=== PATIENT | male | born 1940 | race Caucasian/White ===

== ENCOUNTER → 2016-10-20 | Outpatient (CLI) | payer OTHER ==
[~2016-10-20] MED LIST: ALFU1TAB2 PO; AMLO5TAB2 PO; ASPI-232 PO; ATOR-26 PO; DUTA0.5C PO; ESCI1TAB9 PO; FLUT0.15 NAE; MELA1CAP9 PO; MULT-506 PO; POLYSOL4 OP
[2016-10-20 12:44] LABS: BASO % 0.2 %; BASO ABS # 0.01 K/uL (0-0.2); COMPLETE YES; EOS % 3.2 %; HEMATOCRIT 37.2 % (42-52); IG% 0.2 %; LYMPH % 23.9 %; LYMPH ABS # 1.35 K/uL (1.2-3.4); MEAN CELL VOLUME 96.1 fL (80-100); MEAN CORPUSCULAR HEMOGLOBIN 32.8 pg (25-34); MEAN CORPUSCULAR HGB CONC 34.1 g/dl (32-36); MEAN PLATELET VOLUME 11.7 fL (7.4-10.4); MONO % 11.2 %; NEUT % 61.3 %; PLATELET COUNT 127 K/uL (130-400); RED BLOOD COUNT 3.87 M/uL (4.7-6.1); WHITE BLOOD COUNT 5.64 K/uL (4.8-10.8)
[2016-10-20 13:55] LABS: ALT/SGPT 26 U/L (12-78); BLOOD UREA NITROGEN 21 mg/dl (7-18); BUN/CREATININE RATIO 24.9 (10-20); CALCIUM 8.1 mg/dl (8.5-10.1); CARBON DIOXIDE 25 mmol/L (21-32); CHLORIDE 110 mmol/L (98-107); CHOLESTEROL 98 mg/dl (0-200); CREATININE 0.83 mg/dl (0.60-1.40); GLUCOSE 94 mg/dl (70-99); POTASSIUM 3.9 mmol/L (3.5-5.1); SODIUM 143 mmol/L (136-145); TRIGLYCERIDES 83 mg/dl (0-150); VERY LOW DENSITY LIPOPROT CALC 17 mg/dl
[2016-10-20 14:02] LABS: ALB/GLOB RATIO 1.6 (0.9-2); ALKALINE PHOSPHATASE 86 U/L (45-117); AST/SGOT 18 U/L (15-37); CHOLESTEROL/HDL RATIO 2.4; HDL CHOLESTEROL 41 mg/dl; LDL CHOLESTEROL CALCULATED 40 mg/dl
== END | disposition home or self-care (01) ==
LOC: C.LAB1850 09:49
PROVIDERS: ATTEND Physician Assistant
DX: Z00.00 Encounter for general adult medical examination without abnormal findings (principal); I10 Essential (primary) hypertension; E78.5 Hyperlipidemia, unspecified; N40.1 Benign prostatic hyperplasia with lower urinary tract symptoms

== ENCOUNTER → 2016-11-07 | Outpatient (CLI) | payer OTHER ==
--- NOTE | 2016-11-07 12:22 | DIAGNOSTIC IMAGING REPORT ---
RIGHT KNEE 1 OR 2 VIEWS ROUTINE CLINICAL HISTORY: M25.569 Knee [id number] Right COMPARISON STUDY: None. FINDINGS: Moderate cartilage space narrowing within the medial compartment of the right knee and mild cartilage space narrowing seen within the lateral compartment. No fracture or dislocation. A 2.2 cm calcification medial to the medial femoral condyle. This is consistent with an old healed injury. Small knee effusion. Small marginal osteophytes. 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 No acute fracture or dislocation. Old MCL injury. Electronically signed by: Ghassan Xavier M.D. 11/07/2016 12:21 PM Dictated Date/Time: 11/07/2016 12:16 PM
== END ==
LOC: C.RAD1850 12:04
PROVIDERS: ATTEND Internal Medicine
DX: M25.561 Pain in right knee (principal)

== ENCOUNTER → 2016-12-12 | Outpatient (CLI) | payer OTHER ==
--- NOTE | 2016-12-12 14:25 | MAMMOGRAPHY REPORT ---
MALE BILATERAL DIGITAL DIAGNOSTIC MAMMOGRAM WITH CAD AND TARGETED BILATERAL ULTRASOUND: 12/12/2016 CLINICAL HISTORY: The patient reports he hit his left breast against the corner of a shelf approximat mahogany one month ago and had significant pain at that time. He still reports continued pain in the left breast. He denies any right breast pain or palpable lumps. TECHNIQUE: Current study was also evaluated with a Computer Aided Detection (CAD) system. Bilateral CC and MLO views were obtained. COMPARISON: No prior exams were available for comparison. BREAST COMPOSITION: The tissue of both breasts is prominently fatty. FINDINGS: Two square markers jerson the sites of pain in the left 12:00 and upper outer quadrant. The re is fibro-glandular tissue seen within bilateral breasts centered around the subareolar region, lef t breast greater than right consistent with moderate gynecomastia. No suspicious masses, calcificati ons, or areas of architectural distortion are noted within either breast. Targeted ultrasound was performed of the areas of pain pointed out by the patient, in the left subare olar breast, left 12:00 periareolar breast, and left 3:00 periareolar breast. Fibroglandular tissue is seen in these regions, consistent with gynecomastia. No suspicious mass or other suspicious sonog raphic abnormality is evident. No fluid collection is seen. Targeted ultrasound was performed of th e right subareolar breast for comparison purposes, which also shows fibroglandular tissue consistent with gynecomastia. IMPRESSION: ACR BI-RADS CATEGORY 2: BENIGN, TARGETED ULTRASOUND ACR BI-RADS CATEGORY 2: BENIGN Bilateral benign gynecomastia, left greater than right, which corresponds with the areas of pain poin elio out by the patient. There is no mammographic or targeted sonographic evidence of malignancy. Re commend clinical follow-up as to a possible underlying cause. The patient has been verbally notified of the results. Approximately 10% of breast cancers are not detected with mammography. A negative mammographic report should not delay biopsy if a clinically suggestive mass is present. Emelia Jones M.D. ah/:12/12/2016 11:11:24 Tool Shaper Set Up Operator: Florecita COTA)(M), [facility] letter sent: Normal /2 BI-RADS Code: ACR BI-RADS Category 2: Benign Ultrasound BI-RADS: ACR BI-RADS Category 2: Benign
== END | disposition home or self-care (01) ==
LOC: C.MAMM 10:21
PROVIDERS: ATTEND Physician Assistant
DX: N64.4 Mastodynia (principal); N62 Hypertrophy of breast

== ENCOUNTER → 2017-03-03 | Outpatient (CLI) | payer OTHER ==
[2017-03-03 14:40] LABS: LYME DISEASE AB IGG NEG (NEG); LYME DISEASE AB IGM NEG (NEG)
--- NOTE | 2017-03-09 12:09 | CODING QUERY MEDICAL NECESSITY ---
CQSUPPORTING DIAGNOSIS NEEDED A supporting diagnosis is required for the test/procedure performed on this patient in order for us to be reimbursed by the patient's insurance. Please provide a supporting diagnosis for the following test/procedure listed below next to the test name along with your signature. *If there is no additional diagnosis for this patient that would support the following test/procedure please document that below next to the test/procedure. Test(s)/Procedure(s) that require a supporting diagnosis: DOS 03/03/17 VITAMIN B12 TEST Provider Signature: Date: Thank you Manjula Morrison Health Information Management Once completed, please kindly fax back to [phone] For questions please call [phone]
== END | disposition home or self-care (01) ==
LOC: C.LAB1850 12:13
PROVIDERS: ATTEND Physician Assistant
DX: R53.81 Other malaise (principal); R53.83 Other fatigue

== ENCOUNTER → 2017-03-06 | Outpatient (CLI) | payer OTHER ==
--- NOTE | 2017-03-06 09:47 | DIAGNOSTIC IMAGING REPORT ---
ABDOMINAL ULTRASOUND TO ASSESS FOR HERNIA HISTORY: Abdominal pain. Evaluate for hernia. COMPARISON: None. FINDINGS: Note is made of a defect within the midline of the upper anterior abdominal wall. The defect measures 6 mm in transverse dimension. There is an associated nonreducible fat-containing hernia. IMPRESSION: Nonreducible fat-containing midline upper abdominal hernia. Electronically signed by: Eduard Butt M.D. 03/06/2017 9:46 AM Dictated Date/Time: 03/06/2017 9:44 AM
== END | disposition home or self-care (01) ==
LOC: C.ULTR 08:52
PROVIDERS: ATTEND Physician Assistant
DX: R10.13 Epigastric pain (principal); K46.9 Unspecified abdominal hernia without obstruction or gangrene

== ENCOUNTER 2017-09-07 19:38 | Emergency (ER) | payer OTHER ==
[~2017-09-07] VITALS: Ht 182.9 cm; Wt 84.3 kg
[2017-09-07 20:19] VITALS: BP 101/66; PULSE 61; TEMP 36.3; O2SAT 94; Ht 182.9 cm; Wt 84.3 kg
[2017-09-07] MEDS ORDERED: PROPARACAINE HCL 0.5% OP SOLN 15 ML BTL ONE (20:30)
--- NOTE | 2017-09-07 21:14 | EMERGENCY ROOM VISIT NOTE ---
History First contact with patient: 20:23 Chief Complaint: EYE ASSESSMENT Stated Complaint: EYE PAIN History of Present Illness The patient is a 77 year old male who presents to the Emergency Room with complaints of pain in his right eye. The patient states that he was burning trash this evening and felt that something flew into his right eye. He complains of a painful, scratching feeling in the eye, worse when he blinks. He rates the discomfort a 2/10. He states that he tried to have his flipped over his eyelid but she was unable. His tetanus is up-to-date. He denies any vision changes. Review of Systems A complete 10 point review of systems was reviewed with the patient with pertinent positives and negatives as per history of present illness. All else were negative. Past Medical/Surgical History Medical Problems: (1) Anxiety State Nos (2) Diverticulosis Colon (W/O Ment Of Hemorrhage) (3) Hyperlipidemia Nec/Nos (4) Hypertension Nos Family History Diabetes mellitus Heart disease Hypertension Social History Smoking Status: Former Smoker Alcohol Use: occasionally Marital Status: Occupation Status: retired Current/Historical Medications Scheduled Alfuzosin Hcl (Alfuzosin Hcl Er), 10 MG PO QPM Amlodipine Besylate (Norvasc), 1 TAB PO DAILY Aspirin (Aspir-81), 1 TAB PO DAILY Atorvastatin (Lipitor), 80 MG PO QPM Dutasteride (Avodart), 0.5 MG PO QPM Escitalopram Oxalate (Lexapro), 1 TAB PO DAILY Multivitamin (Multivitamin), 1 TAB PO DAILY Polyethylene Glycol-Propylene (Systane), 1-2 DROPS OP UD Scheduled PRN Fluticasone Propionate (Nasal) (Flonase Allergy Relief), 1 SPRAY JOSE RAUL BID PRN for ALLERGIC REACTION Melatonin (Melatonin), 10 MG PO UD PRN for Sleep Physical Exam Vital Signs Date Time Temp Pulse Resp B/P (MAP) Pulse Ox O2 Delivery O2 Flow Rate FiO2 18 20:19 36.3 61 19 101/66 94 Room Air Right Eye Acuity: 20/25 Left Eye Acuity: 20/20 Physical Exam VITALS: Vitals are noted on the nurse's note and reviewed by myself. Vital signs stable. GENERAL: This is a 77-year-old male, in no acute distress, nondiaphoretic, well- developed well-nourished. SKIN: The skin was without rashes. EYES: Visual acuity as per nursing notes. Pupils equal round and reactive to light and accommodation. Slit lamp examination reveals a small black foreign body at approximately 3:00 over the iris right. Examination with UV light after foreign body removal shows a small corneal abrasion in that area. No foreign body seen under the surface of the eyelid when flipped. NEURO: Patient was alert and oriented to person place and time. Medical Decision & Procedures Medications Administered Medications (Trade) Dose Ordered Sig/Halie Route Start Time Stop Time Status Last Admin Dose Admin Proparacaine HCl (Alcaine 0.5% Oph Soln) 225 drops STK-MED ONCE .ROUTE 09/07/17 20:30 09/07/17 20:31 DC 09/07/17 20:30 225 DROPS Ciprofloxacin HCl (Ciprofloxacin 0.3% Op Soln) 2 drops Q4H ONCE OP 09/07/17 21:15 09/07/17 21:16 DC 09/07/17 21:18 2 DROPS Medical Decision Differential diagnosis includes corneal foreign body, corneal abrasion, corneal laceration, among others. The patient was evaluated as above. Exam under slit lamp after treatment with proparacaine reveals a small corneal foreign body. This was easily removed with a wet cotton tipped applicator. Reexamination showed a small corneal abrasion. Patient will be placed on Ciloxan drops and was instructed to follow- up with his primary care provider/spray machine tender for recheck. He verbalized understanding of my assessment and treatment plan and was discharged home in good condition. The patient was independently evaluated by Dr. Walls, ED attending physician, who agreed with my assessment and treatment plan. Medication Reconcilliation Current Medication List: was personally reviewed by me Blood Pressure Screening Patient's blood pressure: Normal blood pressure Impression Primary Impression: Corneal foreign body Departure Information Dispostion Home / Self-Care Condition GOOD Referrals Pro,Marc Shin M.D. (PCP) Patient Instructions My [facility] Additional Instructions You have been treated in the Emergency Department today for your Corneal Abrasion. There was a small foreign body removed from the surface of URI. There is a small scratch on the eye where the foreign body was removed. You have been prescribed Ciloxan eye drops. This is an antibiotic which will help to prevent an infection from developing in your affected eye. You should use 2 drops in the affected eye every 2 hours while awake for the first 2 days, then every 4 hours for the remaining 5 days. This is a total of a 7-day course for these antibiotic eye drops. For pain control, you can use the following [id number] medicines (if >12 yo): - Regular strength (325mg/tab) Tylenol (acetaminophen) 2 tabs every 4-6 hours as needed. Do not exceed 12 tablets in a 24 hour period. Avoid taking more than 4 grams (4000 mg) of Tylenol per day. This includes any other sources of acetaminophen you may take on a regular basis. - Regular strength (200 mg/tab) Advil (ibuprofen) 1-2 tabs every 4-6 hours as needed. Do not exceed a dose of 3200 mg per day. You should relax in a quiet, dark place for the rest of the day. You should wear sunglasses while outside for the next few days until your eyes are not as sensitive to the light. You should schedule a follow-up appointment in 2-3 days with your Primary Care Provider or established Eye Doctor ([facility]) for further evaluation and treatment of your Corneal Abrasion. Return to the Emergency Department if your current symptoms worsen despite treatment course outlined above, or if you develop any of the following symptoms : intractable pain, visual disturbances, loss of vision, increased redness, swelling, drainage, or if you develop a fever. Problem Qualifiers Primary Impression: Corneal foreign body Encounter type: initial encounter Laterality: right Qualified Codes: T15.01XA - Foreign body in cornea, right eye, initial encounter
[2017-09-07] MEDS ORDERED: CIPROFLOXACIN HCL 0.3% OP SOLN 2.5 ML BTL OP ONE (21:15)
== END 2017-09-07 21:22 | disposition home or self-care (01) ==
LOC: C.EDB 19:40 → C.EDD 21:22
DX: T15.01XA Foreign body in cornea, right eye, initial encounter (principal); X58.XXXA Exposure to other specified factors, initial encounter; F41.9 Anxiety disorder, unspecified; E78.5 Hyperlipidemia, unspecified; I10 Essential (primary) hypertension; K57.30 Diverticulosis of large intestine without perforation or abscess without bleeding; Z79.82 Long term (current) use of aspirin; Z87.891 Personal history of nicotine dependence; Z83.3 Family history of diabetes mellitus; Z82.49 Family history of ischemic heart disease and other diseases of the circulatory system

== ENCOUNTER → 2017-10-29 | Outpatient (CLI) | payer OTHER ==
[2017-10-29 09:35] LABS: BASO % 0.2 %; BASO ABS # 0.01 K/uL (0-0.2); EOS % 4.6 %; EOS ABS # 0.27 K/uL (0-0.5); HEMATOCRIT 36.5 % (42-52); HEMOGLOBIN 12.8 g/dL (14.0-18.0); IG# 0.04 K/uL (0.00-0.02); LYMPH % 34.2 %; LYMPH ABS # 2.01 K/uL (1.2-3.4); MEAN CELL VOLUME 96.6 fL (80-100); MEAN CORPUSCULAR HEMOGLOBIN 33.9 pg (25-34); MEAN CORPUSCULAR HGB CONC 35.1 g/dl (32-36); MEAN PLATELET VOLUME 11.2 fL (7.4-10.4); MONO % 8.9 %; MONO ABS # 0.52 K/uL (0.11-0.59); NEUT % 51.4 %; NEUT ABS # 3.02 K/uL (1.4-6.5); PLATELET COUNT 171 K/uL (130-400); RED CELL DISTRIBUTION WIDTH CV 12.5 % (11.5-14.5); RED CELL DISTRIBUTION WIDTH SD 44.1 fL (36.4-46.3); WHITE BLOOD COUNT 5.87 K/uL (4.8-10.8)
[2017-10-29 10:10] LABS: ALBUMIN 3.5 gm/dl (3.4-5.0); ALT/SGPT 28 U/L (12-78); AST/SGOT 20 U/L (15-37); BLOOD UREA NITROGEN 18 mg/dl (7-18); CALCIUM 8.4 mg/dl (8.5-10.1); CARBON DIOXIDE 27 mmol/L (21-32); CHOLESTEROL 76 mg/dl (0-200); CREATININE 1.02 mg/dl (0.60-1.40); GLUCOSE 86 mg/dl (70-99); POTASSIUM 3.9 mmol/L (3.5-5.1); SODIUM 141 mmol/L (136-145)
[2017-10-29 10:13] LABS: ALKALINE PHOSPHATASE 88 U/L (45-117); LDL CHOLESTEROL CALCULATED 30 mg/dl; TOTAL PROTEIN 6.2 gm/dl (6.4-8.2)
== END | disposition home or self-care (01) ==
LOC: C.LAB1850 08:29
PROVIDERS: ATTEND Physician Assistant
DX: I10 Essential (primary) hypertension (principal); E78.5 Hyperlipidemia, unspecified

== ENCOUNTER → 2017-11-04 | Outpatient (CLI) | payer OTHER ==
--- NOTE | 2017-11-04 13:56 | DIAGNOSTIC IMAGING REPORT ---
CHEST 2 VIEWS ROUTINE CLINICAL HISTORY: COUGH dyspnea COMPARISON STUDY: 06/18/2016 FINDINGS: Mild stable cardia megaly. Prior median sternotomy. Lungs are clear. Several small calcified granulomas. Diaphragms are smooth. IMPRESSION: No acute process. The above report was generated using voice recognition software. It may contain grammatical, syntax or spelling errors. Electronically signed by: Ziyad Camejo M.D. 11/04/2017 1:55 PM Dictated Date/Time: 11/04/2017 1:54 PM
== END | disposition home or self-care (01) ==
LOC: C.RAD1850 13:43
PROVIDERS: ATTEND Internal Medicine
DX: R05 Cough (principal); R06.00 Dyspnea, unspecified

== ENCOUNTER 2025-04-21 18:40 | Observation (INO) ==
--- NOTE | 2025-04-21 18:58 | Emergency Department Note ---
Impression & Plan TIA (transient ischemic attack), Chronic anemia ED Provider Note NAME: MAGDI DUVALL AGE: 85 SEX: M : 1940 ARRIVES VIA: Ambulance INFORMANT: Patient, EMS, family ED PROVIDER(S): Darvin Soliz DO CHIEF COMPLAINT: stroke like symptoms HPI: This is a 85-year-old male with the PMHx of Hypertension, hyperlipidemia, BPH, CAD s/p CABG, and chronic lower back pain presenting to [facility] for further evaluation of strokelike symptoms. Patient is accompanied by EMS who provide additional history. EMS reports that the patient was at dinner with his family members when he developed strokelike symptoms including left-sided weakness and dysarthria. EMS was called. They stated that his stroke assessment was negative for them. Family notes that he was dysarthric and had weakness. Patient states that this is since resolved. They were approximate timing lasted anywhere from 15 to 45 minutes. They deny fever or chills. No cough or congestion. Denies chest pain or palpitations. No shortness of breath. They deny abdominal pain, nausea and vomiting. No urinary complaints. No recent changes in bowel movements. Patient denies recent changes in medications or OTC supplements. Patient offers no other complaints, today. ADDITIONAL HISTORY OBTAINED: Per HPI Chronic Medical/Social Conditions Affecting Care: Per HPI PAST MEDICAL HISTORY: See Below PAST SURGICAL HISTORY: See Below FAMILY HISTORY: See Below SOCIAL HISTORY: See Below HOME MEDICATIONS: See Below ALLERGIES: See Below VITALS: See Below PHYSICAL EXAMINATION: GENERAL: Sitting up in bed, alert, well appearing, well nourished, no distress, non-toxic EYE EXAM: normal conjunctiva. PERRL and EOM's grossly intact. OROPHARYNX: no exudate, no erythema, lips, buccal mucosa, and tongue normal and mucous membranes are moist NECK: supple, no nuchal rigidity, no adenopathy, non-tender LUNGS: Clear to auscultation. Normal chest wall mechanics HEART: no murmurs, regular rate, regular rhythm ABDOMEN: abdomen soft, non-tender, no masses, no rebound or guarding. BACK: Back is symmetrical on inspection and there is no deformity, no midline tenderness, no CVA tenderness. SKIN: no rashes and no bruising UPPER EXTREMITIES: upper extremities are grossly normal. LOWER EXTREMITIES: No pitting edema. NEURO EXAM: Normal sensorium, GCS 15, normal speech, no gross weakness of arms, no gross weakness of legs (possible subtle weakness of the LLE). No drift. Finger to nose intact. Gross sensation intact. NIHSS 0. MEDICAL DECISION MAKING: Differential diagnoses includes but not limited to TIA, CVA, intracranial hemorrhage, compressive neuropathy, peripheral neuropathy, polyneuropathy, electrolyte derangements, dehydration In summary, this is a 85 year old male who presented with strokelike symptoms. Differential as above. Nursing notes and pertinent past medical records reviewed. Vital signs reviewed and the patient is afebrile and hemodynamically stable. History and presentation revealed multiple risk factors for stroke including hypertension, hyperlipidemia and age. Patient's symptoms do sound characteristic of stroke prior to arrival. Other considerations would be a compressive neuropathy while sitting for dinner. Would consider L-spine pathology as well. Patient's exam is relatively benign with an NIH stroke scale of 0. NVI lower extremities and doubt acute spinal cord compression. Diagnostics interpreted by me include EKG and cardiac monitoring as listed below: -Cardiac Monitoring: An order was placed for continuous cardiac monitoring. The monitor shows a rate of 50-80s with regular rhythm. -ECG: Sinus bradycardia at a rate of 57 bpm. First-degree AV block present. No significant ST segment changes to suggest STEMI. Intervals are within normal limits otherwise. Patient completed laboratory studies and imaging. Results independently interpreted by me are Mild anemia that is worse than prior. No significant leukocytosis. Coagulation studies are normal. LFTs are normal. Kidney function and electrolytes are normal. The patient was managed with close observation. CTH independently interpreted by me reveals no evidence of ICH. No significant hydrocephalus. No major skull fractures. CTH does not demonstrate findings to suggest an etiology of the patient's symptoms or presentation, today. CTA head and neck were independently interpreted by me as negative for stroke or significant stenoses. Moderate risk ABCD2 score and MRI ordered. Plan for admission for further workup for TIA. Symptoms could also be related to the L spine or compressive neuropathy. Symptoms resolved prior to arrival. Do not feel he would be appropriate for thrombectomy or TNK. Discussed with family and they are agreeable to admission for possible stroke workup including MRI. Ultimately, the decision was made to admit the patient for stroke like symptoms and concerns for TIA. I discussed the case with the hospitalist service via telephone/TigerText and they are agreeable to admit the patient to their services. Based on the above, including the patient's age, coexisting illnesses, labs, imaging, and exam findings the decision to treat as an inpatient. I discussed the patient with the hospitalist team who recommended admission to their services. They received the medications, treatments, interventions indicated above and their condition remained stable. I discussed my findings with the patient and their family and they understand and agree with the treatment plan. All patient / family questions were answered to their satisfaction. Consults/Care Managements Discussions: Per MDM ER treatment provided: See above Procedures:none Critical Care: None The chart was completed utilizing Step-In voice recognition software. Grammatical errors, random word insertions, pronoun errors, and incomplete sentences are an occasional consequence of this system due to software limitations, ambient noise, and hardware issues. Any formal questions or concerns about the content, text, or information contained within the body of this dictation should be directly addressed to the physician for clarification. Past Med/Surg History Problem List (Updated 04/22/25 @ 02:00 by Darvin Soliz DO) Chronic anemia (Acute) TIA (transient ischemic attack) (Acute) Cerumen impaction Renal lesion Incisional hernia Arthritis Rhinitis Sleep disturbance Anemia BPH with obstruction/lower urinary tract symptoms Diastasis recti CAD (coronary artery disease) of artery bypass graft Current use of proton pump inhibitor Back pain Low iron Right renal mass Bee sting Leg wound, right Vasomotor rhinitis LPRD (laryngopharyngeal reflux disease) Left hip pain Hoarseness Sinus bradycardia Hyperlipidemia SNHL (sensorineural hearing loss) BPH (benign prostatic hyperplasia) Fatigue (Chronic) Insomnia (Chronic) Anxiety (Acute) Hypertension Medical History Bronchitis Visit for pre-operative examination Hypotension Benign paroxysmal positional vertigo Dysfunction of eustachian tube Surgical History History of tonsillectomy History of inguinal hernia repair History of intravascular stent placement History of arthroscopy of left shoulder History of arthroscopy of right knee Hx of CABG Family History Family/Other No problems noted. Mother Heart disease Father Osteoarthritis Pacemaker Brother Prostate cancer Grandmother (Paternal) Diabetes Aunt Diabetes Other Hypertension No family history of bleeding disorder Denies family history of Ovarian cancer Myocardial infarction Breast cancer Colorectal cancer Social History Smoking Status: Former smoker Tobacco Type: Cigarettes Age Started Using Tobacco: 15; Age Quit Using Tobacco: 29; packs per day: 0.5; Second Hand Exposure: No; Do You Dip or Chew Tobacco: No; Hx Alcohol Use: Yes Alcohol Intake Frequency Comment: occasionally drinks wine Hx Substance Use: No Preferred Language: [place] Visual Impairment: No Limitations Hearing Ability: Use of Hearing Aid marital status: Current Living Situation: Spouse current occupational status: retired 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 Feels Safe at Home: Yes Childhood Exposure to Second-Hand Smoke: No during the past year weight has: remained stable Dental Care, Regularly: No Physical Activity Frequency: Daily Seatbelt Use: always Sunscreen Use: Yes Allergies Allergies Allergy/AdvReac Type Severity Reaction Status Date / Time cephalexin Allergy Mild unknown Verified 04/21/25 10:34 dicloxacillin AdvReac Intermediate NAUSEA, Verified 04/21/25 10:34 VOMITING sertraline AdvReac Mild GIVES PT Verified 04/21/25 10:34 BAD DREAMS Home Meds Home Medications Medication Instructions Recorded Confirmed multivitamin (Multiple Vitamins 1 tab PO DAILY 04/21/19 04/21/25 tablet) aspirin 81 mg tablet,delayed 81 mg PO DAILY 03/11/21 04/21/25 release omega 2-rjw-hqv-fish oil 1,000 mg 1 cap PO DAILY 03/11/21 04/21/25 (120 mg-180 mg) capsule (Fish Oil) cholecalciferol (vitamin D3) 25 25 mcg PO DAILY 02/03/23 04/21/25 mcg (1,000 unit) capsule ferrous sulfate 325 mg (65 mg 325 mg PO DAILY 02/03/23 04/21/25 iron) tablet (Feosol) azelastine 137 mcg (0.1 %) nasal 2 spray intranasal BID PRN 01/16/25 04/21/25 spray Congestion Previous Rx's Medication Instructions Recorded famotidine 20 mg tablet (Pepcid) 20 mg PO .qhs #90 tabs 02/10/24 alfuzosin 10 mg tablet,extended 10 mg PO DAILY #90 tabs 08/26/24 release 24 hr dutasteride 0.5 mg capsule 0.5 mg PO DAILY #90 caps 08/26/24 atorvastatin 40 mg tablet 40 mg PO HS #90 tabs 11/07/24 escitalopram oxalate 10 mg tablet 15 mg (1.5 x 10 mg) PO DAILY #135 12/22/24 tabs meclizine 25 mg chewable tablet 25 mg PO BID PRN dizziness #10 tabs 01/16/25 (Antivert) amlodipine 10 mg tablet 10 mg PO QDD #90 tabs 01/26/25 omeprazole 40 mg capsule,delayed See Rx Instructions .Route 02/21/25 release .COMPLEX #180 caps clotrimazole-betamethasone 1 1 applic topical BID #15 grams 03/02/25 %-0.05 % topical cream losartan 100 mg tablet 100 mg PO DAILY #90 tabs 03/02/25 mometasone 0.1 % topical solution 1 applic topical .COMPLEX PRN 03/02/25 itching #30 mL fluticasone propionate 50 1 spray intranasal DAILY #16 grams 04/17/25 mcg/actuation nasal spray,suspension gabapentin 100 mg capsule 100 mg PO TID #90 caps 04/19/25 Results & Data (ED) Vital Signs Vital Signs - 24 hr 04/21/25 18:47 04/21/25 18:49 04/21/25 18:52 Pulse Rate 74 58 L Pulse Rate [Apical] Pulse Rhythm [Apical] Pulse Strength [Apical] Respiratory Rate 18 Respiratory Effort / Characteristics Non-Labored Spontaneous Respiratory Depth Normal Respiratory Pattern Blood Pressure 139/90 Blood Pressure [Right Arm] Blood Pressure Mean 106 Blood Pressure Mean [Right Arm] Blood Pressure Position [Right Arm] Pulse Oximetry 92 94 Oxygen Delivery Method Room Air Room Air Sepsis Recent Fever Within 48 Hours No Sepsis New/Unexplained Change in Mental Status N/A Sepsis Action Taken by Nursing No Action Required 04/21/25 20:46 04/21/25 22:00 Pulse Rate Pulse Rate [Apical] 80 55 L Pulse Rhythm [Apical] Regular Regular Pulse Strength [Apical] Normal Normal Respiratory Rate 18 18 Respiratory Effort / Characteristics Non-Labored Non-Labored Respiratory Depth Normal Normal Respiratory Pattern Regular Regular Blood Pressure Blood Pressure [Right Arm] 140/70 136/87 Blood Pressure Mean Blood Pressure Mean [Right Arm] 93 103 Blood Pressure Position [Right Arm] Sitting Sitting Pulse Oximetry 98 97 Oxygen Delivery Method Room Air Room Air Sepsis Recent Fever Within 48 Hours Sepsis New/Unexplained Change in Mental Status Sepsis Action Taken by Nursing Laboratory Data 04/21/25 18:49 04/21/25 18:49 Lab Results 04/21/25 Range/Units 18:49 WBC 8.89 (4.8-10.8) K/ul RBC 3.52 L (4.70-6.10) M/uL Hgb 11.6 L (14.0-18.0) g/dl Hct 34.3 L (42.0-52.0) % MCV 97.4 (80.0-100.0) fL MCH 33.0 (25.0-34.0) pg MCHC 33.8 (32.0-36.0) g/dL RDW Std Deviation 44.3 (36.4-46.3) fL RDW Coeff of Ana 12.5 (11.5-14.5) % Plt Count 159 (130-400) K/uL MPV 10.8 (9.4-12.4) fL Immature Gran % (Auto) 0.7 % Neut % (Auto) 72.7 % Lymph % (Auto) 14.3 % Morrow % (Auto) 10.0 % Eos % (Auto) 2.1 % Baso % (Auto) 0.2 % Neut # (Auto) 6.46 (1.40-6.50) K/uL Lymph # (Auto) 1.27 (1.20-3.40) K/uL Morrow # (Auto) 0.89 H (0.11-0.59) K/uL Eos # (Auto) 0.19 (0.00-0.50) K/uL Baso # (Auto) 0.02 (0.00-0.20) K/uL Immature Gran # (Auto) 0.06 (0.01-0.20) K/uL PT 10.3 (9.0-12.0) Seconds INR 1.0 (0.9-1.1) APTT 25 (21-31) Seconds PTT Ratio 0.9 Sodium 137 (136-145) mmol/L Potassium 4.1 (3.5-5.1) mmol/L Chloride 105 (98-107) mmol/L Carbon Dioxide 27 (21-32) mmol/L Anion Gap 5 (3-11) BUN 22 (6-23) mg/dl Creatinine 1.01 (0.6-1.4) mg/dl Est Cr Clr Drug Dosing Not Reportable eGFR 72.43 BUN/Creatinine Ratio 21.8 H (10-20) Glucose 107 H (70-99(Fasting)) mg/dl Calcium 8.4 L (8.6-10.3) mg/dl Magnesium 2.0 (1.7-2.4) mg/dl Total Bilirubin 0.6 (0.2-1.0) mg/dl AST 18 (13-39) U/L ALT 14 (7-52) U/L Alkaline Phosphatase 103 (34-104) U/L Troponin I High Sens 5.9 (0-20) pg/ml Total Protein 5.9 L (6.0-8.3) gm/dl Albumin 3.7 (3.4-5.0) gm/dl Globulin 2.2 L (2.5-4.0) gm/dl Albumin/Globulin Ratio 1.7 (0.9-2) Administered Medications Discontinued Medications Aspirin (Aspirin 81 Mg Chew) 243 mg PO NOW STA Stop: 04/21/25 23:04 Last Admin: 04/22/25 00:09 Dose: 243 mg Documented By: KONG Gadobutrol (Gadobutrol 10ml Vial) 8.5 ml IV ONCE ONE Stop: 04/21/25 23:00 Last Admin: 04/21/25 22:59 Dose: 8.5 ml Documented By: KISHA Ioversol (Optiray 320 125ml) 119 ml IV ONCE ONE Stop: 04/21/25 20:12 Last Admin: 04/21/25 20:11 Dose: 119 ml Documented By: EDK Imaging Data Radiologist's Impression: Head CT 04/21/25 18:54 Exam(s): CT HEAD Without Contrast EXAM: CT Head Without Intravenous Contrast CLINICAL HISTORY: Reason for exam: neuro deficit, acute stroke suspected. TECHNIQUE: Axial computed tomography images of the head/brain without intravenous contrast. CTDI is 12.47 mGy and DLP is 468 mGy-cm. Automated exposure control was utilized for the study. A dose lowering technique was utilized adhering to the principles of ALARA. COMPARISON: Prior head CT from January 16, 2025. FINDINGS: Brain: Unremarkable. No hemorrhage. Mild nonspecific white matter changes. No edema. Right cerebellar tonsillar ectopia. Ventricles: Unremarkable. No ventriculomegaly. Bones/joints: Unremarkable. No acute fracture. Soft tissues: Unremarkable. Sinuses: Unremarkable as visualized. No acute sinusitis. Mastoid air cells: Unremarkable as visualized. No mastoid effusion. IMPRESSION: No evidence of acute intracranial pathology. Electronically signed by: Deedee Burrows MD 04/21/25 21:50 PM Head CTA 04/21/25 18:54 Exam(s): CTA HEAD With Contrast IV Amt: 119ML OPTIRAY 320 EXAM: CT Angiography Head With Intravenous Contrast CLINICAL HISTORY: Reason for exam: neuro deficit, acute stroke suspected. TECHNIQUE: Axial computed tomographic angiography images of the head with intravenous contrast. CTDI is 34.93 mGy and DLP is 624.41 mGy-cm. Automated exposure control was utilized for the study. A dose lowering technique was utilized adhering to the principles of ALARA. MIP reconstructed images were created and reviewed. CONTRAST: Patient received 119ML OPTIRAY 320 of IV contrast COMPARISON: Prior CT angiogram of the head from January 16, 2025. FINDINGS: The dural venous sinuses are patent. Right internal carotid artery: No acute findings. Intracranial segment is patent with no significant stenosis. No aneurysm. Right anterior cerebral artery: Unremarkable. No occlusion or significant stenosis. No aneurysm. Right middle cerebral artery: Unremarkable. No occlusion or significant stenosis. No aneurysm. Right posterior cerebral artery: Unremarkable. No occlusion or significant stenosis. No aneurysm. Right vertebral artery: Unremarkable as visualized. Left internal carotid artery: No acute findings. Intracranial segment is patent with no significant stenosis. No aneurysm. Left anterior cerebral artery: Unremarkable. No occlusion or significant stenosis. No aneurysm. Left middle cerebral artery: Unremarkable. No occlusion or significant stenosis. No aneurysm. Left posterior cerebral artery: Unremarkable. No occlusion or significant stenosis. No aneurysm. Left vertebral artery: Unremarkable as visualized. Basilar artery: Unremarkable. No occlusion or significant stenosis. No aneurysm. IMPRESSION: Negative CT angiogram of the head. Electronically signed by: Deedee Burrows MD 04/21/25 21:46 PM Neck CTA 04/21/25 18:54 Exam(s): CTA NECK With Contrast IV Amt: 119ML OPTIRAY 320 EXAM: CT Angiography Neck With Intravenous Contrast CLINICAL HISTORY: Reason for exam: neuro deficit, acute stroke suspected. TECHNIQUE: Routine carotid CT angiography protocol was performed with intravenous contrast. NASCET criteria using the distal ICAs for comparison were used for evaluation of stenoses. CTDI is 12.47 mGy and DLP is 468.16 mGy-cm. Automated exposure control was utilized for the study. A dose lowering technique was utilized adhering to the principles of ALARA. MIP reconstructed images were created and reviewed. CONTRAST: Patient received 119ML OPTIRAY 320 of IV contrast COMPARISON: Prior CT angiogram of the neck foramina January 16, 2025. FINDINGS: VASCULATURE: Right common carotid artery: Unremarkable. No occlusion or significant stenosis. No dissection. Right internal carotid artery: Mild calcified atherosclerotic plaque. Extracranial segment is patent with no occlusion or significant stenosis. No dissection. Right external carotid artery: Unremarkable. No occlusion. Right vertebral artery: Unremarkable. No occlusion or significant stenosis. No dissection. Left common carotid artery: Unremarkable. No occlusion or significant stenosis. No dissection. Left internal carotid artery: Mild calcified atherosclerotic plaque. Extracranial segment is patent with no occlusion or significant stenosis. No dissection. Left external carotid artery: Unremarkable. No occlusion. Left vertebral artery: Unremarkable. No occlusion or significant stenosis. No dissection. NECK: Bones/joints: Unremarkable. No acute fracture. Soft tissues: Unremarkable. Lung apices: Clear. CAROTID STENOSIS REFERENCE USING NASCET CRITERIA: % ICA stenosis = (1 - narrowest ICA diameter/diameter of distal cervical ICA) x 100. Mild - <50% stenosis. Moderate - 50-69% stenosis. Severe - 70-94% stenosis. Near occlusion - 95-99% stenosis. Occluded - 100% stenosis. IMPRESSION: Negative CT angiogram of the neck. Electronically signed by: Deedee Burrows MD 04/21/25 21:48 PM Brain MRI 04/21/25 22:06 Exam(s): MRI HEAD W/WO Contrast IV Amt: 8.5ml gadavist EXAM: MR Head Without and With Intravenous Contrast CLINICAL HISTORY: Reason for exam: TIA workup. TECHNIQUE: Magnetic resonance images of the head/brain without and with intravenous contrast in multiple planes. CONTRAST: Patient received 8.5ml gadavist of IV contrast COMPARISON: Prior head CT from April 21, 2025. FINDINGS: This study is limited secondary to motion artifact. Brain: Mild nonspecific white matter changes. No mass. No hemorrhage. No acute infarct. The flow voids at the base the brain are intact. No evidence of abnormal enhancement. The dural venous sinuses are patent. Empty sella. Ventricles: Unremarkable. No ventriculomegaly. Bones/joints: Unremarkable. No acute fracture. Sinuses: Unremarkable as visualized. No acute sinusitis. Mastoid air cells: Unremarkable as visualized. No mastoid effusion. Orbits: Unremarkable as visualized. IMPRESSION: No evidence of acute intracranial pathology. Electronically signed by: Deedee Burrows MD 04/22/25 00:[address] 04/21/25 23:07 Exam(s): CT L SPINE EXAM: CT Lumbar Spine Without Intravenous Contrast CLINICAL HISTORY: LLE weakness. TECHNIQUE: Axial computed tomography images of the lumbar spine without intravenous contrast. CTDI is 39.4 mGy and DLP is 1045 mGy-cm. Automated exposure control was utilized for the study. A dose lowering technique was utilized adhering to the principles of ALARA. COMPARISON: No relevant prior studies available. FINDINGS: Limitations: There is respiratory artifact, which degrades image quality on multiple image slices. Vertebrae: The lumbar vertebral bodies are intact. 1-2 mm retrolisthesis involving L2 on L3. The pedicles and remaining posterior elements are intact. There is disc space narrowing with marginal hypertrophic changes and vacuum phenomenon from L2-3 inferiorly. Soft tissues: No significant paraspinal soft tissue abnormality identified. DISCS/SPINAL CANAL/NEURAL FORAMINA: L1-L2: Unremarkable. No significant disc disease. No stenosis. L2-L3: L2-3: Diffuse annular disc bulge. No central canal stenosis. Facet hypertrophic changes. Mild left neural foraminal encroachment. L3-L4: L3-4: Diffuse annular disc bulge. Facet hypertrophic changes with mild thickening of the ligamentum flavum. Mild canal narrowing. No significant neural foraminal encroachment. L4-L5: L4-5: Diffuse annular disc bulge. No significant central canal stenosis. Mild bilateral neural foraminal encroachment. L5-S1: Diffuse annular disc bulge. No central canal stenosis. Mild right neural foraminal encroachment. IMPRESSION: No acute findings involving the lumbar spine. Multilevel disc spondylosis, as noted above. Electronically signed by: Thiago Mendoza MD 04/22/25 00:46 AM Discharge Plan Visit Data Chief Complaint: Stroke/CVA Symptoms Stated Complaint: CVA SX ED Provider: Darvin Soliz Discharge Problem: TIA (transient ischemic attack), Chronic anemia Patient Disposition: Admitted As Inpatient Condition: Fair
[2025-04-21 19:11] LABS: Hematocrit (blood only) 34.3 % (42.0-52.0); Hemoglobin 11.6 g/dl (14.0-18.0); Immature Granulocytes # (auto) 0.06 K/uL (0.01-0.20); Immature Granulocytes % (auto) 0.7 %; Mean Corpuscular Hemoglobin 33.0 pg (25.0-34.0); Mean Corpuscular Volume 97.4 fL (80.0-100.0); Platelet Count 159 K/uL (130-400); RDW Standard Deviation 44.3 fL (36.4-46.3); Red Blood Count 3.52 M/uL (4.70-6.10); White Blood Count 8.89 K/ul (4.8-10.8)
[2025-04-21 19:28] LABS: Alanine Aminotransferase 14 U/L (7-52); Albumin Globulin Ratio 1.7 (0.9-2); Albumin Level 3.7 gm/dl (3.4-5.0); Alkaline Phosphatase 103 U/L (34-104); Anion Gap 5 (3-11); Bilirubin,Total 0.6 mg/dl (0.2-1.0); Blood Urea Nitrogen 22 mg/dl (6-23); Calcium 8.4 mg/dl (8.6-10.3); Carbon Dioxide 27 mmol/L (21-32); Chloride 105 mmol/L (98-107); Globulin 2.2 gm/dl (2.5-4.0); Glucose 107 mg/dl (70-99(Fasting)); Magnesium 2.0 mg/dl (1.7-2.4); Potassium 4.1 mmol/L (3.5-5.1); Sodium 137 mmol/L (136-145); Total Protein 5.9 gm/dl (6.0-8.3)
[2025-04-21 19:39] LABS: INR 1.0 (0.9-1.1); Partial Thromboplastin Time 25 Seconds (21-31); Prothrombin Time 10.3 Seconds (9.0-12.0)
[2025-04-21] MEDS: OPTIRAY 320 125ml IV ONE (20:11)
--- NOTE | 2025-04-21 21:47 | CT Scan Report ---
Exam(s): CTA HEAD With Contrast IV Amt: 119ML OPTIRAY 320 EXAM: CT Angiography Head With Intravenous Contrast CLINICAL HISTORY: Reason for exam: neuro deficit, acute stroke suspected. TECHNIQUE: Axial computed tomographic angiography images of the head with intravenous contrast. CTDI is 34.93 mGy and DLP is 624.41 mGy-cm. Automated exposure control was utilized for the study. A dose lowering technique was utilized adhering to the principles of ALARA. MIP reconstructed images were created and reviewed. CONTRAST: Patient received 119ML OPTIRAY 320 of IV contrast COMPARISON: Prior CT angiogram of the head from January 16, 2025. FINDINGS: The dural venous sinuses are patent. Right internal carotid artery: No acute findings. Intracranial segment is patent with no significant stenosis. No aneurysm. Right anterior cerebral artery: Unremarkable. No occlusion or significant stenosis. No aneurysm. Right middle cerebral artery: Unremarkable. No occlusion or significant stenosis. No aneurysm. Right posterior cerebral artery: Unremarkable. No occlusion or significant stenosis. No aneurysm. Right vertebral artery: Unremarkable as visualized. Left internal carotid artery: No acute findings. Intracranial segment is patent with no significant stenosis. No aneurysm. Left anterior cerebral artery: Unremarkable. No occlusion or significant stenosis. No aneurysm. Left middle cerebral artery: Unremarkable. No occlusion or significant stenosis. No aneurysm. Left posterior cerebral artery: Unremarkable. No occlusion or significant stenosis. No aneurysm. Left vertebral artery: Unremarkable as visualized. Basilar artery: Unremarkable. No occlusion or significant stenosis. No aneurysm. IMPRESSION: Negative CT angiogram of the head. Electronically signed by: Deedee Burrows MD 04/21/25 21:46 PM
--- NOTE | 2025-04-21 21:49 | CT Scan Report ---
Exam(s): CTA NECK With Contrast IV Amt: 119ML OPTIRAY 320 EXAM: CT Angiography Neck With Intravenous Contrast CLINICAL HISTORY: Reason for exam: neuro deficit, acute stroke suspected. TECHNIQUE: Routine carotid CT angiography protocol was performed with intravenous contrast. NASCET criteria using the distal ICAs for comparison were used for evaluation of stenoses. CTDI is 12.47 mGy and DLP is 468.16 mGy-cm. Automated exposure control was utilized for the study. A dose lowering technique was utilized adhering to the principles of ALARA. MIP reconstructed images were created and reviewed. CONTRAST: Patient received 119ML OPTIRAY 320 of IV contrast COMPARISON: Prior CT angiogram of the neck foramina January 16, 2025. FINDINGS: VASCULATURE: Right common carotid artery: Unremarkable. No occlusion or significant stenosis. No dissection. Right internal carotid artery: Mild calcified atherosclerotic plaque. Extracranial segment is patent with no occlusion or significant stenosis. No dissection. Right external carotid artery: Unremarkable. No occlusion. Right vertebral artery: Unremarkable. No occlusion or significant stenosis. No dissection. Left common carotid artery: Unremarkable. No occlusion or significant stenosis. No dissection. Left internal carotid artery: Mild calcified atherosclerotic plaque. Extracranial segment is patent with no occlusion or significant stenosis. No dissection. Left external carotid artery: Unremarkable. No occlusion. Left vertebral artery: Unremarkable. No occlusion or significant stenosis. No dissection. NECK: Bones/joints: Unremarkable. No acute fracture. Soft tissues: Unremarkable. Lung apices: Clear. CAROTID STENOSIS REFERENCE USING NASCET CRITERIA: % ICA stenosis = (1 - narrowest ICA diameter/diameter of distal cervical ICA) x 100. Mild - <50% stenosis. Moderate - 50-69% stenosis. Severe - 70-94% stenosis. Near occlusion - 95-99% stenosis. Occluded - 100% stenosis. IMPRESSION: Negative CT angiogram of the neck. Electronically signed by: Deedee Burrows MD 04/21/25 21:48 PM
--- NOTE | 2025-04-21 21:51 | CT Scan Report ---
Exam(s): CT HEAD Without Contrast EXAM: CT Head Without Intravenous Contrast CLINICAL HISTORY: Reason for exam: neuro deficit, acute stroke suspected. TECHNIQUE: Axial computed tomography images of the head/brain without intravenous contrast. CTDI is 12.47 mGy and DLP is 468 mGy-cm. Automated exposure control was utilized for the study. A dose lowering technique was utilized adhering to the principles of ALARA. COMPARISON: Prior head CT from January 16, 2025. FINDINGS: Brain: Unremarkable. No hemorrhage. Mild nonspecific white matter changes. No edema. Right cerebellar tonsillar ectopia. Ventricles: Unremarkable. No ventriculomegaly. Bones/joints: Unremarkable. No acute fracture. Soft tissues: Unremarkable. Sinuses: Unremarkable as visualized. No acute sinusitis. Mastoid air cells: Unremarkable as visualized. No mastoid effusion. IMPRESSION: No evidence of acute intracranial pathology. Electronically signed by: Deedee Burrows MD 04/21/25 21:50 PM
[2025-04-21] MEDS: GADOBUTROL 10ML VIAL IV ONE (22:59)
--- NOTE | 2025-04-21 23:08 | History & Physical Report ---
Date of Service April 21, 2025 Assessment & Plan (1) Transient left leg weakness: (2) Transient speech disturbance: (3) Lumbar degenerative disc disease: (4) BPH with obstruction/lower urinary tract symptoms: Plan The patient is an 85-year-old male with past medical history including chronic anemia, BPH with LUTS, diastases recti, CAD, GERD, LPRD, hyperlipidemia, SNHL bilaterally, anxiety, insomnia, and hypertension. The patient presents to the emergency department with complaint of acute onset of left lower extremity weakness after sitting on a stool for an hour when he was at a function eating keys soup. There was question of whether he had a brief episode of slurred s peech as reported by an acquaintance who was with him. The patient himself felt no issues with his speech, and was only concerned about his left lower extremity weakness. He denies any symptoms of left upper extremity. He does note urinary frequency that was ongoing. He also reports chronic low back pain, and had an x-ray done on 04/11 which showed degeneration, retrolisthesis and spondylosis t hat have progressed from previous. In the emergency department, his left lower extremity weakness was back to his baseline, and there was no issues with speech, or any other neurologic function. Workup included the following imaging: CT scan head was negative, CTA head was negative, CTA neck was negative. He is usually on aspirin 81 mg daily, which he did take this morning, and I gave him an additional 243 mg of aspirin now. Patient was being sent for an MRI of the brain. The patient was referred for evaluation for admission to the [facility]. Transient left leg weakness/questionable transient slurring of speech- Family reports that the someone who was with the patient thought there may have been a transient slurring of speech, however, the patient did not think there was an issue with his speech. Due to the combination of reported symptoms, patient had the following imaging studies performed: CT scan head was negative, CTA head and neck were negative. MRI of brain was negative. Patient was usually on aspirin 81 mg daily, which he did take today. He is also given additional 243 mg of aspirin per protocol. Patient has a known history of low back pain, with a recent outpatient x-ray which suggested abnormalities. Therefore, CT scan lumbar spine was ordered. Lumbar degenerative disc disease- CT scan lumbar spine showed multilevel diffuse annular disc bulges L2-L3, L3-L4, L4-L5, and L5-S1. Facet hypertrophy was noted with neuroforaminal encroachment at multiple levels. With the fact that the patient's symptoms of left lower extremity weakness p rimarily happened after he reported being sitting motionless for about an hour on a high stool, and then going to stand up. Those symptoms are most consistent with a lumbar origin. The patient had recently gone through a prednisone taper, which he finished several days ago, which did significantly improve his low back pain. If it were not for the report of possible transient slurring of speech, maday martinez's workup would have been primarily of low back pain and compressive radiculopathy. BPH with LUTS/urinary frequency- Continue alfuzosin and dutasteride, or formulary interchange. Urinalysis is ordered and pending collection. Start an antibiotic if it is abnormal Hypertension/CAD/history of coronary artery bypass graft- Continue amlodipine, aspirin, losartan with hold parameters Hyperlipidemia- Continue atorvastatin Anxiety- Continue escitalopram Neuropathy- Continue gabapentin GERD- Continue famotidine 20 mg at bedtime Continue omeprazole/pantoprazole History of Present Illness Chief Complaint: The patient presents to the emergency department with complaint of acute onset of left lower extremity weakness after sitting on a stool for an hour when he was at a function eating keys soup. There was question of whether he had a brief episode of slurred speech as reported by an acquaintance who was with him. The patient himself felt no issues with his speech, and was only concerned about his left lower extremity weakness. He denies any symptoms of left upper extremity. He does note urinary frequency that was ongoing. He also reports chronic low back pain, and had an x-ray done on 04/11 which showed degeneration, retrolisthesis and spondylosis that have progressed from previous. In the emergency department, his left lower extremity weakness was back to his baseline, and there was no issues with speech, or any other neurologic function. Workup included the following imaging: CT scan head was negative, CTA head was negative, CTA neck was negative. He is usually on aspirin 81 mg daily, which he did take this morning, and I gave him an additional 243 mg of aspirin now. Primary Care Provider: Marc Romero MD The patient is an 85-year-old male with past medical history including chronic anemia, BPH with LUTS, diastases recti, CAD, GERD, LPRD, hyperlipidemia, SNHL bilaterally, anxiety, insomnia, and hypertension. The patient presents to the emergency department with complaint of acute onset of left lower extremity weakness after sitting on a stool for an hour when he was at a function eating keys soup. There was question of whether he had a brief episode of slurred speech as reported by an acquaintance who was with him. The patient himself felt no issues with his speech, and was only concerned about his left lower extremity weakness. He denies any symptoms of left upper extremity. He does note urinary frequency that was ongoing. He also reports chronic low back pain, and had an x-ray done on 04/11 which showed degeneration, retrolisthesis and spondylosis that have progressed from previous. In the emergency department, his left lower extremity weakness was back to his baseline, and there was no issues with speech, or any other neurologic function. Workup included the following imaging: CT scan head was negative, CTA head was negative, CTA neck was negative. He is usually on aspirin 81 mg daily, which he did take this morning, and I gave him an additional 243 mg of aspirin now. Patient was being sent for an MRI of the brain. The patient was referred for evaluation for admission to the [facility]. Allergies Allergy/AdvReac Type Severity Reaction Status Date / Time cephalexin Allergy Mild unknown Verified 04/21/25 10:34 dicloxacillin AdvReac Intermediate NAUSEA, Verified 04/21/25 10:34 VOMITING sertraline AdvReac Mild GIVES PT Verified 04/21/25 10:34 BAD DREAMS Home Medications Medication Instructions Recorded Confirmed Type multivitamin (Multiple Vitamins 1 tab PO DAILY 04/21/19 04/21/25 History tablet) aspirin 81 mg tablet,delayed 81 mg PO DAILY 03/11/21 04/21/25 History release omega 3-nlh-xsz-fish oil 1,000 mg 1 cap PO DAILY 03/11/21 04/21/25 History (120 mg-180 mg) capsule (Fish Oil) cholecalciferol (vitamin D3) 25 25 mcg PO DAILY 02/03/23 04/21/25 History mcg (1,000 unit) capsule ferrous sulfate 325 mg (65 mg 325 mg PO DAILY 02/03/23 04/21/25 History iron) tablet (Feosol) famotidine 20 mg tablet (Pepcid) 20 mg PO .qhs #90 tabs 02/10/24 04/21/25 Rx alfuzosin 10 mg tablet,extended 10 mg PO DAILY #90 tabs 08/26/24 04/21/25 Rx release 24 hr dutasteride 0.5 mg capsule 0.5 mg PO DAILY #90 caps 08/26/24 04/21/25 Rx atorvastatin 40 mg tablet 40 mg PO HS #90 tabs 11/07/24 04/21/25 Rx escitalopram oxalate 10 mg tablet 15 mg (1.5 x 10 mg) PO DAILY #135 12/22/24 04/21/25 Rx tabs azelastine 137 mcg (0.1 %) nasal 2 spray intranasal BID PRN 01/16/25 04/21/25 History spray Congestion meclizine 25 mg chewable tablet 25 mg PO BID PRN dizziness #10 tabs 01/16/25 04/21/25 Rx (Antivert) amlodipine 10 mg tablet 10 mg PO QDD #90 tabs 01/26/25 04/21/25 Rx omeprazole 40 mg capsule,delayed See Rx Instructions .Route 02/21/25 04/21/25 Rx release .COMPLEX #180 caps clotrimazole-betamethasone 1 1 applic topical BID #15 grams 03/02/25 04/21/25 Rx %-0.05 % topical cream losartan 100 mg tablet 100 mg PO DAILY #90 tabs 03/02/25 04/21/25 Rx mometasone 0.1 % topical solution 1 applic topical .COMPLEX PRN 03/02/25 1 Rx itching #30 mL fluticasone propionate 50 1 spray intranasal DAILY #16 grams 04/17/25 04/21/25 Rx mcg/actuation nasal spray,suspension gabapentin 100 mg capsule 100 mg PO TID #90 caps 04/19/25 04/21/25 Rx Past Med/Surg History Problem List (Updated 04/22/25 @ 03:16 by Don Cho MD) Transient speech disturbance Lumbar degenerative disc disease Transient left leg weakness Chronic anemia (Acute) TIA (transient ischemic attack) (Acute) Cerumen impaction Renal lesion Incisional hernia Arthritis Rhinitis Sleep disturbance Anemia BPH with obstruction/lower urinary tract symptoms Diastasis recti CAD (coronary artery disease) of artery bypass graft Current use of proton pump inhibitor Back pain Low iron Right renal mass Bee sting Leg wound, right Vasomotor rhinitis LPRD (laryngopharyngeal reflux disease) Left hip pain Hoarseness Sinus bradycardia Hyperlipidemia SNHL (sensorineural hearing loss) BPH (benign prostatic hyperplasia) Fatigue (Chronic) Insomnia (Chronic) Anxiety (Acute) Hypertension Medical History Bronchitis Visit for pre-operative examination Hypotension Benign paroxysmal positional vertigo Dysfunction of eustachian tube Surgical History History of tonsillectomy History of inguinal hernia repair History of intravascular stent placement History of arthroscopy of left shoulder History of arthroscopy of right knee Hx of CABG Family History Family/Other No problems noted. Mother Heart disease Father Osteoarthritis Pacemaker Brother Prostate cancer Grandmother (Paternal) Diabetes Aunt Diabetes Other Hypertension No family history of bleeding disorder Denies family history of Ovarian cancer Myocardial infarction Breast cancer Colorectal cancer Social History Smoking Status: Former smoker Tobacco Type: Cigarettes Age Started Using Tobacco: 15; Age Quit Using Tobacco: 29; packs per day: 0.5; Second Hand Exposure: No; Do You Dip or Chew Tobacco: No; Hx Alcohol Use: Yes Alcohol Intake Frequency Comment: occasionally drinks wine Hx Substance Use: No Preferred Language: Tajik Visual Impairment: No Limitations Hearing Ability: Use of Hearing Aid marital status: Current Living Situation: Spouse current occupational status: retired 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 Feels Safe at Home: Yes Childhood Exposure to Second-Hand Smoke: No during the past year weight has: remained stable Dental Care, Regularly: No Physical Activity Frequency: Daily Seatbelt Use: always Sunscreen Use: Yes Review of Systems Review of Systems: The patient denies chest pain, palpitations, shortness of breath, dyspnea on exertion, cough, lower extremity swelling, sore throat, fevers, chills, sweats, nausea, vomiting, diarrhea , constipation, abdominal pain, pelvic pain, blood in urine or stool, dysuria, urinary frequency or urgency, lightheadedness, dizziness, headache, memory loss, loss of consciousness, rash, abnormal bruising or bleeding, focal or generalized weakness, numbness or tingling in arms or right leg, generalized arthralgias or myalgias, neck pain, or night sweats. The review of systems is otherwise negative other than for that already noted above, and at least 10 systems have been reviewed. Physical Exam Physical Exam: The patient is awake, alert and oriented 3, well developed and well nourished, normocephalic and atraumatic, lying in bed and in no acute distress. HEENT--PERRL, EOMI, mucous membranes and oropharynx mildly dry. Neck--supple. No JVD. No bruits. Thyroid normal, trachea midline, no adenopathy. Heart--normal S1 and S2. No murmurs, rubs or gallops. Lungs--clear bilaterally, no respiratory distress, no accessory muscle use. Abdomen--normal bowel sounds and soft. Nontender. Nondistended, no hernias or masses, no organomegaly. Extremities--no cyanosis or clubbing. No edema. There are good distal pulses b/l. Dermatologic--normal skin turgor, normal color, no abnormal lymph nodes, no rash. Neurologic--cranial nerves II through XII grossly intact. Rheumatologic--normal range of motion. Psychiatric--normal affect. Results & Data Results & Data Vital Signs (Past 12 Hours) Vital Signs Pulse Pulse Resp BP BP Pulse Ox O2 Del Method 04/21/25 20:46 80 18 140/70 98 Room Air 04/21/25 18:52 94 Room Air 04/21/25 18:49 58 L 04/21/25 18:47 74 18 139/90 92 Room Air Laboratory Results Laboratory Results WBC 8.89 K/ul (4.8-10.8) 04/21/25 18:49 RBC 3.52 M/uL (4.70-6.10) L 04/21/25 18:49 Hgb 11.6 g/dl (14.0-18.0) L 04/21/25 18:49 Hct 34.3 % (42.0-52.0) L 04/21/25 18:49 MCV 97.4 fL (80.0-100.0) 04/21/25 18:49 MCH 33.0 pg (25.0-34.0) 04/21/25 18:49 MCHC 33.8 g/dL (32.0-36.0) 04/21/25 18:49 RDW Std Deviation 44.3 fL (36.4-46.3) 04/21/25 18:49 RDW Coeff of Ana 12.5 % (11.5-14.5) 04/21/25 18:49 Plt Count 159 K/uL (130-400) 04/21/25 18:49 MPV 10.8 fL (9.4-12.4) 04/21/25 18:49 Immature Gran % (Auto) 0.7 % 04/21/25 18:49 Neut % (Auto) 72.7 % 04/21/25 18:49 Lymph % (Auto) 14.3 % 04/21/25 18:49 [place] % (Auto) 10.0 % 04/21/25 18:49 Eos % (Auto) 2.1 % 04/21/25 18:49 Baso % (Auto) 0.2 % 04/21/25 18:49 Neut # (Auto) 6.46 K/uL (1.40-6.50) 04/21/25 18:49 Lymph # (Auto) 1.27 K/uL (1.20-3.40) 04/21/25 18:49 [place] # (Auto) 0.89 K/uL (0.11-0.59) H 04/21/25 18:49 Eos # (Auto) 0.19 K/uL (0.00-0.50) 04/21/25 18:49 Baso # (Auto) 0.02 K/uL (0.00-0.20) 04/21/25 18:49 Immature Gran # (Auto) 0.06 K/uL (0.01-0.20) 04/21/25 18:49 PT 10.3 Seconds (9.0-12.0) 04/21/25 18:49 INR 1.0 (0.9-1.1) 04/21/25 18:49 APTT 25 Seconds (21-31) 04/21/25 18:49 PTT Ratio 0.9 04/21/25 18:49 Sodium 137 mmol/L (136-145) 04/21/25 18:49 Potassium 4.1 mmol/L (3.5-5.1) 04/21/25 18:49 Chloride 105 mmol/L (98-107) 04/21/25 18:49 Carbon Dioxide 27 mmol/L (21-32) 04/21/25 18:49 Anion Gap 5 (3-11) 04/21/25 18:49 BUN 22 mg/dl (6-23) 04/21/25 18:49 Creatinine 1.01 mg/dl (0.6-1.4) 04/21/25 18:49 Est Cr Clr Drug Dosing Not Reportable 04/21/25 18:49 eGFR 72.43 04/21/25 18:49 BUN/Creatinine Ratio 21.8 (10-20) H 04/21/25 18:49 Glucose 107 mg/dl (70-99(Fasting)) H 04/21/25 18:49 Calcium 8.4 mg/dl (8.6-10.3) L 04/21/25 18:49 Magnesium 2.0 mg/dl (1.7-2.4) 04/21/25 18:49 Total Bilirubin 0.6 mg/dl (0.2-1.0) 04/21/25 18:49 AST 18 U/L (13-39) 04/21/25 18:49 ALT 14 U/L (7-52) 04/21/25 18:49 Alkaline Phosphatase 103 U/L (34-104) 04/21/25 18:49 Troponin I High Sens 5.9 pg/ml (0-20) 04/21/25 18:49 Total Protein 5.9 gm/dl (6.0-8.3) L 04/21/25 18:49 Albumin 3.7 gm/dl (3.4-5.0) 04/21/25 18:49 Globulin 2.2 gm/dl (2.5-4.0) L 04/21/25 18:49 Albumin/Globulin Ratio 1.7 (0.9-2) 04/21/25 18:[address] 04/21/25 18:54 Exam(s): CT HEAD Without Contrast EXAM: CT Head Without Intravenous Contrast CLINICAL HISTORY: Reason for exam: neuro deficit, acute stroke suspected. TECHNIQUE: Axial computed tomography images of the head/brain without intravenous contrast. CTDI is 12.47 mGy and DLP is 468 mGy-cm. Automated exposure control was utilized for the study. A dose lowering technique was utilized adhering to the principles of ALARA. COMPARISON: Prior head CT from January 16, 2025. FINDINGS: Brain: Unremarkable. No hemorrhage. Mild nonspecific white matter changes. No edema. Right cerebellar tonsillar ectopia. Ventricles: Unremarkable. No ventriculomegaly. Bones/joints: Unremarkable. No acute fracture. Soft tissues: Unremarkable. Sinuses: Unremarkable as visualized. No acute sinusitis. Mastoid air cells: Unremarkable as visualized. No mastoid effusion. IMPRESSION: No evidence of acute intracranial pathology. Electronically signed by: Deedee Burrows MD 04/21/25 21:50 PM Head CTA 04/21/25 18:54 Exam(s): CTA HEAD With Contrast IV Amt: 119ML OPTIRAY 320 EXAM: CT Angiography Head With Intravenous Contrast CLINICAL HISTORY: Reason for exam: neuro deficit, acute stroke suspected. TECHNIQUE: Axial computed tomographic angiography images of the head with intravenous contrast. CTDI is 34.93 mGy and DLP is 624.41 mGy-cm. Automated exposure control was utilized for the study. A dose lowering technique was utilized adhering to the principles of ALARA. MIP reconstructed images were created and reviewed. CONTRAST: Patient received 119ML OPTIRAY 320 of IV contrast COMPARISON: Prior CT angiogram of the head from January 16, 2025. FINDINGS: The dural venous sinuses are patent. Right internal carotid artery: No acute findings. Intracranial segment is patent with no significant stenosis. No aneurysm. Right anterior cerebral artery: Unremarkable. No occlusion or significant stenosis. No aneurysm. Right middle cerebral artery: Unremarkable. No occlusion or significant stenosis. No aneurysm. Right posterior cerebral artery: Unremarkable. No occlusion or significant stenosis. No aneurysm. Right vertebral artery: Unremarkable as visualized. Left internal carotid artery: No acute findings. Intracranial segment is patent with no significant stenosis. No aneurysm. Left anterior cerebral artery: Unremarkable. No occlusion or significant stenosis. No aneurysm. Left middle cerebral artery: Unremarkable. No occlusion or significant stenosis. No aneurysm. Left posterior cerebral artery: Unremarkable. No occlusion or significant stenosis. No aneurysm. Left vertebral artery: Unremarkable as visualized. Basilar artery: Unremarkable. No occlusion or significant stenosis. No aneurysm. IMPRESSION: Negative CT angiogram of the head. Electronically signed by: Deedee Burrows MD 04/21/25 21:46 PM Neck CTA 04/21/25 18:54 Exam(s): CTA NECK With Contrast IV Amt: 119ML OPTIRAY 320 EXAM: CT Angiography Neck With Intravenous Contrast CLINICAL HISTORY: Reason for exam: neuro deficit, acute stroke suspected. TECHNIQUE: Routine carotid CT angiography protocol was performed with intravenous contrast. NASCET criteria using the distal ICAs for comparison were used for evaluation of stenoses. CTDI is 12.47 mGy and DLP is 468.16 mGy-cm. Automated exposure control was utilized for the study. A dose lowering technique was utilized adhering to the principles of ALARA. MIP reconstructed images were created and reviewed. CONTRAST: Patient received 119ML OPTIRAY 320 of IV contrast COMPARISON: Prior CT angiogram of the neck foramina January 16, 2025. FINDINGS: VASCULATURE: Right common carotid artery: Unremarkable. No occlusion or significant stenosis. No dissection. Right internal carotid artery: Mild calcified atherosclerotic plaque. Extracranial segment is patent with no occlusion or significant stenosis. No dissection. Right external carotid artery: Unremarkable. No occlusion. Right vertebral artery: Unremarkable. No occlusion or significant stenosis. No dissection. Left common carotid artery: Unremarkable. No occlusion or significant stenosis. No dissection. Left internal carotid artery: Mild calcified atherosclerotic plaque. Extracranial segment is patent with no occlusion or significant stenosis. No dissection. Left external carotid artery: Unremarkable. No occlusion. Left vertebral artery: Unremarkable. No occlusion or significant stenosis. No dissection. NECK: Bones/joints: Unremarkable. No acute fracture. Soft tissues: Unremarkable. Lung apices: Clear. CAROTID STENOSIS REFERENCE USING NASCET CRITERIA: % ICA stenosis = (1 - narrowest ICA diameter/diameter of distal cervical ICA) x 100. Mild - <50% stenosis. Moderate - 50-69% stenosis. Severe - 70-94% stenosis. Near occlusion - 95-99% stenosis. Occluded - 100% stenosis. IMPRESSION: Negative CT angiogram of the neck. Electronically signed by: Deedee Burrows MD 04/21/25 21:48 PM Brain MRI 04/21/25 22:06 Exam(s): MRI HEAD W/WO Contrast IV Amt: 8.5ml gadavist EXAM: MR Head Without and With Intravenous Contrast CLINICAL HISTORY: Reason for exam: TIA workup. TECHNIQUE: Magnetic resonance images of the head/brain without and with intravenous contrast in multiple planes. CONTRAST: Patient received 8.5ml gadavist of IV contrast COMPARISON: Prior head CT from April 21, 2025. FINDINGS: This study is limited secondary to motion artifact. Brain: Mild nonspecific white matter changes. No mass. No hemorrhage. No acute infarct. The flow voids at the base the brain are intact. No evidence of abnormal enhancement. The dural venous sinuses are patent. Empty sella. Ventricles: Unremarkable. No ventriculomegaly. Bones/joints: Unremarkable. No acute fracture. Sinuses: Unremarkable as visualized. No acute sinusitis. Mastoid air cells: Unremarkable as visualized. No mastoid effusion. Orbits: Unremarkable as visualized. IMPRESSION: No evidence of acute intracranial pathology. Electronically signed by: Deedee Burrows MD 04/22/25 00:[address] 04/21/25 23:07 Exam(s): CT L SPINE EXAM: CT Lumbar Spine Without Intravenous Contrast CLINICAL HISTORY: LLE weakness. TECHNIQUE: Axial computed tomography images of the lumbar spine without intravenous contrast. CTDI is 39.4 mGy and DLP is 1045 mGy-cm. Automated exposure control was utilized for the study. A dose lowering technique was utilized adhering to the principles of ALARA. COMPARISON: No relevant prior studies available. FINDINGS: Limitations: There is respiratory artifact, which degrades image quality on multiple image slices. Vertebrae: The lumbar vertebral bodies are intact. 1-2 mm retrolisthesis involving L2 on L3. The pedicles and remaining posterior elements are intact. There is disc space narrowing with marginal hypertrophic changes and vacuum phenomenon from L2-3 inferiorly. Soft tissues: No significant paraspinal soft tissue abnormality identified. DISCS/SPINAL CANAL/NEURAL FORAMINA: L1-L2: Unremarkable. No significant disc disease. No stenosis. L2-L3: L2-3: Diffuse annular disc bulge. No central canal stenosis. Facet hypertrophic changes. Mild left neural foraminal encroachment. L3-L4: L3-4: Diffuse annular disc bulge. Facet hypertrophic changes with mild thickening of the ligamentum flavum. Mild canal narrowing. No significant neural foraminal encroachment. L4-L5: L4-5: Diffuse annular disc bulge. No significant central canal stenosis. Mild bilateral neural foraminal encroachment. L5-S1: Diffuse annular disc bulge. No central canal stenosis. Mild right neural foraminal encroachment. IMPRESSION: No acute findings involving the lumbar spine. Multilevel disc spondylosis, as noted above. Electronically signed by: Thiago Mendoza MD 04/22/25 00:46 AM Code Status & VTE Plan Code Status Full code VTE Prophylaxis Plan VTE Prophylaxis will be ordered: Yes PG Care Time/CCT Total # of Minutes Spent Total Time Spent with Patient: Total time spent is greater than 50% in coordination of care (as documented) at patient's floor/unit and/or counseling patient: Coding Level of Care Code 15076 INT INP/OBS CARE 3/75MIN Diagnoses Transient left leg weakness R29.898 Transient speech disturbance R47.9 Lumbar degenerative disc disease M51.369 BPH with obstruction/lower urinary tract symptoms N40.1; N13.8
[2025-04-22] MEDS: ASPIRIN 81 MG CHEW PO STA (00:09)
--- NOTE | 2025-04-22 00:48 | CT Scan Report ---
Exam(s): CT L SPINE EXAM: CT Lumbar Spine Without Intravenous Contrast CLINICAL HISTORY: LLE weakness. TECHNIQUE: Axial computed tomography images of the lumbar spine without intravenous contrast. CTDI is 39.4 mGy and DLP is 1045 mGy-cm. Automated exposure control was utilized for the study. A dose lowering technique was utilized adhering to the principles of ALARA. COMPARISON: No relevant prior studies available. FINDINGS: Limitations: There is respiratory artifact, which degrades image quality on multiple image slices. Vertebrae: The lumbar vertebral bodies are intact. 1-2 mm retrolisthesis involving L2 on L3. The pedicles and remaining posterior elements are intact. There is disc space narrowing with marginal hypertrophic changes and vacuum phenomenon from L2-3 inferiorly. Soft tissues: No significant paraspinal soft tissue abnormality identified. DISCS/SPINAL CANAL/NEURAL FORAMINA: L1-L2: Unremarkable. No significant disc disease. No stenosis. L2-L3: L2-3: Diffuse annular disc bulge. No central canal stenosis. Facet hypertrophic changes. Mild left neural foraminal encroachment. L3-L4: L3-4: Diffuse annular disc bulge. Facet hypertrophic changes with mild thickening of the ligamentum flavum. Mild canal narrowing. No significant neural foraminal encroachment. L4-L5: L4-5: Diffuse annular disc bulge. No significant central canal stenosis. Mild bilateral neural foraminal encroachment. L5-S1: Diffuse annular disc bulge. No central canal stenosis. Mild right neural foraminal encroachment. IMPRESSION: No acute findings involving the lumbar spine. Multilevel disc spondylosis, as noted above. Electronically signed by: Thiago Mendoza MD 04/22/25 00:46 AM
--- NOTE | 2025-04-22 00:52 | Magnetic Resonance Report ---
Exam(s): MRI HEAD W/WO Contrast IV Amt: 8.5ml gadavist EXAM: MR Head Without and With Intravenous Contrast CLINICAL HISTORY: Reason for exam: TIA workup. TECHNIQUE: Magnetic resonance images of the head/brain without and with intravenous contrast in multiple planes. CONTRAST: Patient received 8.5ml gadavist of IV contrast COMPARISON: Prior head CT from April 21, 2025. FINDINGS: This study is limited secondary to motion artifact. Brain: Mild nonspecific white matter changes. No mass. No hemorrhage. No acute infarct. The flow voids at the base the brain are intact. No evidence of abnormal enhancement. The dural venous sinuses are patent. Empty sella. Ventricles: Unremarkable. No ventriculomegaly. Bones/joints: Unremarkable. No acute fracture. Sinuses: Unremarkable as visualized. No acute sinusitis. Mastoid air cells: Unremarkable as visualized. No mastoid effusion. Orbits: Unremarkable as visualized. IMPRESSION: No evidence of acute intracranial pathology. Electronically signed by: Deedee Burrows MD 04/22/25 00:51 AM
[2025-04-22] MEDS ORDERED: ACETAMINOPHEN 325 MG TAB PO PRN (02:00)
[2025-04-22] MEDS ORDERED: AZELASTINE HCL 0.1% NASAL 200 SPRAYS/27,400 MCG BTL NS PRN (02:00)
[2025-04-22] MEDS ORDERED: PHARMACIST DISCHARGE MED REC CONSULT PRN (02:00)
[2025-04-22 02:59] VITALS: TEMP 97.9
[2025-04-22 04:40] LABS: Hematocrit (blood only) 34.3 % (42.0-52.0); Hemoglobin 11.5 g/dl (14.0-18.0); Immature Granulocytes # (auto) 0.04 K/uL (0.01-0.20); Immature Granulocytes % (auto) 0.6 %; Mean Corpuscular Hemoglobin 32.7 pg (25.0-34.0); Mean Corpuscular Volume 97.4 fL (80.0-100.0); Platelet Count 148 K/uL (130-400); RDW Standard Deviation 44.4 fL (36.4-46.3); Red Blood Count 3.52 M/uL (4.70-6.10); White Blood Count 6.89 K/ul (4.8-10.8)
[2025-04-22 04:56] LABS: Alanine Aminotransferase 12.0 U/L (7-52); Albumin Globulin Ratio 1.7 (0.9-2); Albumin Level 3.6 gm/dl (3.4-5.0); Alkaline Phosphatase 93.0 U/L (34-104); Anion Gap 4.0 (3-11); Bilirubin,Total 0.9 mg/dl (0.2-1.0); Blood Urea Nitrogen 18.0 mg/dl (6-23); Calcium 8.6 mg/dl (8.6-10.3); Carbon Dioxide 28.0 mmol/L (21-32); Chloride 106.0 mmol/L (98-107); Cholesterol 128.0 mg/dl (0-200); Creatinine Clr Calc Pharmacy 58.8 ml/min; Globulin 2.1 gm/dl (2.5-4.0); Glucose 94.0 mg/dl (70-99(Fasting)); HDL Cholesterol 41.0 mg/dl; Magnesium 2.1 mg/dl (1.7-2.4); Potassium 3.9 mmol/L (3.5-5.1); Sodium 138.0 mmol/L (136-145); Total Protein 5.7 gm/dl (6.0-8.3); Triglycerides 74.0 mg/dl (0-150)
[2025-04-22 07:33] LABS: Hemoglobin A1C 5.5 % (4.5-5.6)
[2025-04-22] MEDS: LOSARTAN POTASSIUM 25 MG TAB PO SCH (08:15)
[2025-04-22] MEDS: ASPIRIN 81 MG ECTAB PO SCH (08:16)
[2025-04-22] MEDS: CHOLECALCIFEROL 25 MCG (1000 UNITS) TAB PO SCH (08:17)
[2025-04-22] MEDS: MULTIVITAMIN TAB PO SCH (08:17)
[2025-04-22] MEDS: FINASTERIDE 5 MG TAB PO SCH (08:17)
[2025-04-22] MEDS: FLUTICASONE PROPIONATE NA SPR 16 GM BTL NAE SCH (08:17)
[2025-04-22] MEDS: ESCITALOPRAM OXALATE 10 MG TAB PO SCH (08:17)
[2025-04-22] MEDS: GABAPENTIN 100 MG CAP PO SCH (08:17)
[2025-04-22] MEDS: TAMSULOSIN HCL 0.4 MG CAP PO SCH (08:18)
[2025-04-22 09:12] VITALS: O2SAT 95
--- NOTE | 2025-04-22 13:43 | XCELERA ---
[id number]
[2025-04-22 14:33] LABS: Appearance Urine Clear (Clear); Glucose Urine UA Negative (Negative)
[2025-04-22 15:03] VITALS: RESP 30
[2025-04-22] MEDS ORDERED: STROKE PATIENT DISCHARGE STA (15:26)
[2025-04-22 15:33] VITALS: BP 111/72; PULSE 57
--- NOTE | 2025-04-22 15:33 | Discharge Summary ---
Discharge Summary Date of Service April 22, 2025 Principal Dx & Hospital Course #1 = Principal Diagnosis (1) Transient left leg weakness: (2) Transient speech disturbance: (3) Lumbar degenerative disc disease: (4) BPH with obstruction/lower urinary tract symptoms: Plan The patient is an 85-year-old male with past medical history including chronic anemia, BPH with LUTS, diastases recti, CAD s/p CABG, GERD, chronic lower back pain, hyperlipidemia, SNHL bilaterally, anxiety, insomnia, and hypertension who was admitted with acute onset of left lower extremity weakness after sitting on a stool for an hour when he was at a function eating keys soup. There was question of whether he had a brief episode of slurred speech as reported by an acquaintance who was with him. He had no other focal neurological symptoms and everything resolved after 15 minutes. He did have an episode of urinary incontinence which is not normal for him but urinalysis here is negative. #Transient left leg weakness/questionable transient slurring of speech/possible TIA- CT scan head was negative, CTA head and neck were negative. MRI of brain was negative for stroke. Telemetry with sinus rhythm. Echocardiogram with preserved EF, atrial septal aneurysm and PFO which is not significant in this age group. Possible TIA versus temporary neurovascular peripheral impairment due to positioning while seated on a barstool for an hour. He certainly has risk factors for stroke and TIA of age, HTN, CAD. HgbA1c here is negative, lipid panel acceptable and already on high intensity statin. Blood pressures are well-controlled. He already takes a baby aspirin daily. CT lumbar spine with degenerative disc disease. Symptoms were completely resolved and he was ambulating independently. -Offered dual antiplatelet therapy x 3 weeks just in case this was a TIA but patient and his family declined this after discussion of risks and benefits - Continue high intensity statin, blood pressure control - Follow-up as an outpatient #Lumbar degenerative disc disease-CT scan lumbar spine showed multilevel diffuse annular disc bulges L2-L3, L3-L4, L4-L5, and L5-S1. Facet hypertrophy was noted with neuroforaminal encroachment at multiple levels. With the fact that the patient's symptoms of left lower extremity weakness primarily happened after he reported being sitting motionless for about an hour on a high stool, and then going to stand up. Those symptoms are most consistent with a lumbar origin.The patient had recently gone through a prednisone taper, which he finished several days ago, which did significantly improve his low back pain. -Follow-up with his PCP #BPH with LUTS/urinary frequency-UA here negative for infection High continue alfuzosin and dutasteride #Hypertension/CAD/history of coronary artery bypass graft-no acute issues, troponin negative x 2, ECG with sinus bradycardia and first-degree AV block, no ischemic changes -Continue amlodipine, aspirin, losartan, statin #Anxiety- Continue escitalopram #Neuropathy- Continue gabapentin #GERD- Continue famotidine 20 mg at bedtime Continue PPI DVT prophylaxis-patient was ambulating frequently therefore SCDs were not ordered, anticoagulation was not ordered Disposition-stable for discharge to home Notes For Next Care Provider Medication Changes From Visit None Admission HPI Per Admitting Provider The patient is an 85-year-old male with past medical history including chronic anemia, BPH with LUTS, diastases recti, CAD, GERD, LPRD, hyperlipidemia, SNHL bilaterally, anxiety, insomnia, and hypertension. The patient presents to the emergency department with complaint of acute onset of left lower extremity weakness after sitting on a stool for an hour when he was at a function eating keys soup. There was question of whether he had a brief episode of slurred speech as reported by an acquaintance who was with him. The patient himself felt no issues with his speech, and was only concerned about his left lower extremity weakness. He denies any symptoms of left upper extremity. He does note urinary frequency that was ongoing. He also reports chronic low back pain, and had an x-ray done on 04/11 which showed degeneration, retrolisthesis and spondylosis that have progressed from previous. In the emergency department, his left lower extremity weakness was back to his baseline, and there was no issues with speech, or any other neurologic function. Workup included the following imaging: CT scan head was negative, CTA head was negative, CTA neck was negative. He is usually on aspirin 81 mg daily, which he did take this morning, and I gave him an additional 243 mg of aspirin now. Patient was being sent for an MRI of the brain. The patient was referred for evaluation for admission to the [facility]. Discharge Exam Constitutional WD/WN, vitals as above Eyes PERRL, conjunctivae normal, anicteric sclerae ENMT external ear and nose normal, oropharynx normal Neck trachea midline, no thyromegaly Respiratory normal respiratory effort, lungs clear to auscultation Cardiovascular RRR, no murmur, no edema Chest (Breasts) Chest: normal inspection of chest Gastrointestinal (Abdomen) normal bowel sounds, soft, nontender, no hepatosplenomegaly Musculoskeletal Extremities: extremities normal to inspection; no cyanosis and no clubbing Skin no rashes, warm and dry Neurologic patellar DTR's 2+ bilat, sensation intact and PERRL, EOMI, accommodation nl, no face palsy, no dysarthria deep tendon reflexes 2+ bilaterally, moves all extremities and awake; no focal motor deficits and not confused Speech / Cognition: normal speech and normal cognition Psychiatric A+Ox3, euthymic affect Lymphatic no lymphedema Discharge Plan Discharge Items Patient Disposition: Home - Self-Care Reason For Visit: TRANSIENT LLE WEAKNESS Discharge Diagnosis: Left lower extremity weakness-possible TIA Condition on Discharge: Good Activity: Resume your previous activity Non-emergency contact: Primary Care Provider Call non-emergency contact if: you have any medication questions and your symptoms worsen Follow-up/Referrals: Pro,Marc Shin MD [Primary Care Provider] - (Follow-up within 1-2 weeks) Diet: Heart Healthy Addtl Attending Provider Instructions: You were admitted with temporary weakness of your left lower extremity. There is a chance that this could have been a transient ischemic attack (TIA) as we discussed. This may have also been caused just by positional changes/sitting for a long period of time. Because you do have risk factors for stroke or TIA, you had a workup for this. Your MRI of the brain was negative for stroke and you had no major blockages or plaque buildup in the blood vessels in the head and neck. Your echocardiogram did show the patent foramen ovale (PFO) but this is not a significant finding in someone of your age i.e. you do not need any surgical repair of this. We talked about adding Plavix on for 3 weeks to reduce your risk of further stroke or TIA, but after discussion, you have declined to do this at this time. Please follow-up with your primary care physician within 1-2 weeks after discharge. Risk Factors for Stroke: You can reduce your chances of stroke by working with your medical provider to adopt a healthy lifestyle. Some specific ways to lower your chance of stroke are: * If you are a smoker, now is the time to stop smoking cigarettes * If you are diabetic, improve the control of your blood sugars * Avoid excessive amounts of alcohol * Control high blood pressure * Lose weight if you are overweight * Be sure to lead an active lifestyle * Eat a healthy diet low in salt, cholesterol and fat You should know about other risk factors for stroke that you are unable to control. These include: * Age 55 years or older * Male gender * Certain racial groups: , or / * Family History of Stroke, Mini stroke or Heart Attack * Sickle Cell Disease Follow Up: It is important for you to keep your follow up appointments with your medical provider. Who to Call and When: Medical Emergencies: Call 911 immediately if you experience any of the following warning signs and symptoms of Stroke: * Sudden numbness or weakness of the face, arm or leg, especially on one side of the body * Sudden confusion, trouble speaking or understanding * Sudden trouble seeing in one or both eyes * Sudden trouble walking, dizziness, loss of balance or coordination * Sudden severe headache with no cause Do not delay calling 911 if you experience any warning signs or symptoms of a stroke. Delay in seeking medical attention may affect what treatments can be given to you. . Pending Studies at Discharge: No Stand-Alone Forms: My [facility] Medications and DC Order Prescriptions: Continued alfuzosin 10 mg tablet extended release 24 hr 10 mg PO DAILY Qty: 90 3RF Rx Instructions: After a meal dutasteride 0.5 mg capsule 0.5 mg PO DAILY Qty: 90 3RF escitalopram oxalate 10 mg tablet 15 mg PO DAILY Qty: 135 3RF omeprazole 40 mg capsule,delayed release(DR/EC) See Rx Instructions .ROUTE .COMPLEX Qty: 180 1RF Dose Instruction: TAKE 1 CAPSULE BY MOUTH TWICE A DAY 30 MINS BEFORE A MEAL WITH PROTEIN Rx Instructions: TAKE 1 CAPSULE BY MOUTH TWICE A DAY 30 MINS BEFORE A MEAL WITH PROTEIN losartan 100 mg tablet 100 mg PO DAILY Qty: 90 3RF fluticasone propionate 50 mcg/actuation spray,suspension 1 spray intranasal DAILY Qty: 16 2RF Rx Instructions: administer into each nostril gabapentin 100 mg capsule 100 mg PO TID Qty: 90 5RF multivitamin [Multiple Vitamins] tablet 1 tab PO DAILY ferrous sulfate [Feosol] 325 mg (65 mg iron) tablet 325 mg PO DAILY cholecalciferol (vitamin D3) 25 mcg (1,000 unit) capsule 25 mcg PO DAILY famotidine [Pepcid] 20 mg tablet 20 mg PO .qhs Qty: 90 1RF atorvastatin 40 mg tablet 40 mg PO HS Qty: 90 3RF amlodipine 10 mg tablet 10 mg PO QDD Qty: 90 1RF clotrimazole-betamethasone 1-0.05 % cream 1 applic topical BID Qty: 15 3RF Rx Instructions: apply to ears BID x 1 week then 1x daily x 7 days then 2 days/week x 7 doses then PRN itching mometasone 0.1 % solution 1 applic topical .COMPLEX PRN (Reason: itching) Qty: 30 1RF Rx Instructions: Apply a small amount to the affected ear daily no more than 3 days in a row PRN ear itching. aspirin 81 mg Tablet,Delayed Release (Dr/Ec) 81 mg PO DAILY omega 7-wqc-hsm-fish oil [Fish Oil] 1,000 mg (120 mg-180 mg) Capsule 1 cap PO DAILY azelastine 137 mcg (0.1 %) spray,non-aerosol 2 spray intranasal BID PRN (Reason: Congestion) meclizine [Antivert] 25 mg tablet,chewable 25 mg PO BID PRN (Reason: dizziness) Qty: 10 0RF Discharge Orders: Discharge Order (Routine); Ordered 04/22/25 Ordered By: Kimmy Vela Admission Data Admit Date/Time: 04/21/25 23:08 Attending Provider: Kimmy Vela Admit Provider: Don Cho Primary Care Provider: Marc Romero Other Providers: Don Cho Hospital Stay Data Consultations 04/21/25 22:06 ED Decision to Admit Stat Diagnostic Imagining Performed 04/21/25 18:54 CT angio head w con Stat CT angio neck with con Stat CT head/brain wo con Stat 04/21/25 22:06 MRI Brain [MR brain wo/w con] Stat 04/21/25 23:07 CT lumbar spine wo con Stat Echocardiogram Pending Results Patient Have Any Pending Studies at Discharge: No Discharge Instructions Given to Patient (Per Discharging Provider) You were admitted with temporary weakness of your left lower extremity. There is a chance that this could have been a transient ischemic attack (TIA) as we discussed. This may have also been caused just by positional changes/sitting for a long period of time. Because you do have risk factors for stroke or TIA, you had a workup for this. Your MRI of the brain was negative for stroke and you had no major blockages or plaque buildup in the blood vessels in the head and neck. Your echocardiogram did show the patent foramen ovale (PFO) but this is not a significant finding in someone of your age i.e. you do not need any surgical repair of this. We talked about adding Plavix on for 3 weeks to reduce your risk of further stroke or TIA, but after discussion, you have declined to do this at this time. Please follow-up with your primary care physician within 1-2 weeks after discharge. Risk Factors for Stroke: You can reduce your chances of stroke by working with your medical provider to adopt a healthy lifestyle. Some specific ways to lower your chance of stroke are: * If you are a smoker, now is the time to stop smoking cigarettes * If you are diabetic, improve the control of your blood sugars * Avoid excessive amounts of alcohol * Control high blood pressure * Lose weight if you are overweight * Be sure to lead an active lifestyle * Eat a healthy diet low in salt, cholesterol and fat You should know about other risk factors for stroke that you are unable to control. These include: * Age 55 years or older * Male gender * Certain racial groups: , or / * Family History of Stroke, Mini stroke or Heart Attack * Sickle Cell Disease Follow Up: It is important for you to keep your follow up appointments with your medical provider. Who to Call and When: Medical Emergencies: Call 911 immediately if you experience any of the following warning signs and symptoms of Stroke: * Sudden numbness or weakness of the face, arm or leg, especially on one side of the body * Sudden confusion, trouble speaking or understanding * Sudden trouble seeing in one or both eyes * Sudden trouble walking, dizziness, loss of balance or coordination * Sudden severe headache with no cause Do not delay calling 911 if you experience any warning signs or symptoms of a stroke. Delay in seeking medical attention may affect what treatments can be given to you. . Total Time Total Time Spent Total Time Spent (In Minutes): 45 minutes Total Time Includes: Examination of the Patient, Discharge Planning and Medication Reconciliation Coding Level of Care Code 29114 INP/OBS DISCH >30 MIN Diagnoses Transient left leg weakness R29.898 Transient speech disturbance R47.9 Lumbar degenerative disc disease M51.369 BPH with obstruction/lower urinary tract symptoms N40.1; N13.8
[2025-04-22] MEDS ORDERED: ATORVASTATIN 40 MG TAB PO SCH (21:00)
[2025-04-22] MEDS ORDERED: FAMOTIDINE 20 MG TAB PO SCH (21:00)
--- NOTE | 2025-04-23 07:08 | Electrocardiogram Report ---
Test Reason : Blood Pressure : */* mmHG Vent. Rate : 57 BPM Atrial Rate : 57 BPM P-R Int : 288 ms QRS Dur : 102 ms QT Int : 434 ms P-R-T Axes : 15 -17 51 degrees QTcB Int : 422 ms Sinus bradycardia with 1st degree A-V block Cannot rule out Anterior infarct , age undetermined Abnormal ECG When compared with ECG of 16-Jan-2025 18:12, Incomplete right bundle branch block is no longer Present Confirmed by Daquan Jacobo ([id number]) on 04/23/2025 7:08:13 AM Referred By: REFERRED SELF Confirmed By: Daquan Jacobo
== END 2025-04-22 15:59 | disposition home or self-care (01) ==
LOC: SUATTDRO → ED 18:40 → EDINP 18:40 → SUATTDRO 23:08 → EDINP 04-22 02:00